=== PATIENT | female | born 1980 | race Caucasian/White ===

== ENCOUNTER 2016-08-27 12:39 | Emergency (ER) | payer OTHER | END 2016-08-27 15:10 | disposition home or self-care (01) | LOC: D.ER 12:39 | DX: G43.909 Migraine, unspecified, not intractable, without status migrainosus (principal); K21.9 Gastro-esophageal reflux disease without esophagitis; I10 Essential (primary) hypertension; F17.200 Nicotine dependence, unspecified, uncomplicated ==

== ENCOUNTER 2016-09-10 08:48 | Emergency (ER) | payer OTHER ==
[2016-09-10 09:24] LABS: BASOPHILS 0.1 % (0-2); EOSINOPHILS 0.3 % (0-7); HEMATOCRIT 43.5 % (36.0-48.0); HEMOGLOBIN 14.6 g/dL (12-16); IMMATURE GRANULOCYTES 0.3 % (0-5); LYMPHOCYTES 12.2 % (15-50); MCH 31.3 pg (26.0-34.0); MCHC 33.6 g/dL (31.0-37.0); MCV 93.1 fL (80.0-100.0); MEAN PLATELET VOLUME 10.9 fL (7.4-10.4); MONOCYTES 4.8 % (2-11); NEUTROPHILS 82.3 % (40-80); PLATELET COUNT 249 10x3/uL (130-400); RBC 4.67 10x6/uL (4.00-5.40); RDW 13.7 % (11.5-14.5); WBC 15.4 10x3/uL (4.8-10.8)
[2016-09-10 09:27] LABS: APPEARANCE CLEAR (CLEAR); BILIRUBIN NEGATIVE (NEGATIVE); COLOR DK YELLOW (YELLOW); GLUCOSE NEGATIVE (NEGATIVE); KETONE SMALL mg/dL (NEGATIVE); LEUKOCYTE ESTERASE NEGATIVE (NEGATIVE); NITRITE NEGATIVE (NEGATIVE); PROTEIN NEGATIVE (NEGATIVE); SPECIFIC GRAVITY 1.015 (1.005-1.020); UROBILINOGEN NORMAL (NORMAL)
[2016-09-10 09:34] LABS: ALBUMIN 3.6 g/dL (3.4-5.0); ALKALINE PHOSPHATASE 109 U/L (46-116); ALT (SGPT) 117 U/L (10-68); BILIRUBIN - TOTAL 0.58 mg/dL (0.2-1.3); CALC OSMOLALITY 276 mosm/kg (275-300); CALCIUM 9.1 mg/dL (8.5-10.1); CARBON DIOXIDE 26.8 mmol/L (21.0-32.0); CHLORIDE - SERUM 102 mmol/L (98-107); CREATININE - SERUM 0.8 mg/dL (0.6-1.3); GLUCOSE 128 mg/dL (74-106); POTASSIUM - SERUM 3.7 mmol/L (3.5-5.1); PROTEIN - SERUM 7.3 g/dL (6.4-8.2); SODIUM 138 mmol/L (136-145); UREA NITROGEN 10 mg/dL (7-18); eGFR NON AFRICAN AMERICAN 85 mL/min (90-120)
[2016-09-10 09:39] LABS: HCG SERUM NEGATIVE (NEGATIVE)
== END 2016-09-10 10:49 | disposition home or self-care (01) ==
LOC: D.ER 08:48
PROVIDERS: Emergency Medicine
DX: R11.10 Vomiting, unspecified (principal); R19.7 Diarrhea, unspecified; R10.9 Unspecified abdominal pain; K21.9 Gastro-esophageal reflux disease without esophagitis; I10 Essential (primary) hypertension; F17.200 Nicotine dependence, unspecified, uncomplicated

== ENCOUNTER 2016-11-25 16:18 | Emergency (ER) | payer OTHER ==
[2016-11-25 17:16] LABS: APPEARANCE HAZY (CLEAR); BILIRUBIN NEGATIVE (NEGATIVE); COLOR YELLOW (YELLOW); GLUCOSE NEGATIVE (NEGATIVE); KETONE NEGATIVE (NEGATIVE); LEUKOCYTE ESTERASE 1+ (NEGATIVE); NITRITE NEGATIVE (NEGATIVE); PROTEIN NEGATIVE (NEGATIVE); UROBILINOGEN NORMAL (NORMAL)
[2016-11-25 17:18] LABS: BACTERIA MODERATE /hpf (NONE SEEN); MUCUS <1+ /lpf (NONE SEEN); RED CELLS - URINE OCC /hpf (0-5)
[2016-11-25 17:18] LABS: HEMOGLOBIN 12.9 g/dL (12-16); MCHC 32.3 g/dL (31.0-37.0); MCV 96.2 fL (80.0-100.0); MEAN PLATELET VOLUME 10.7 fL (7.4-10.4); PLATELET COUNT 272 10x3/uL (130-400); RBC 4.16 10x6/uL (4.00-5.40); RDW 13.2 % (11.5-14.5); WBC 7.6 10x3/uL (4.8-10.8)
[2016-11-25 17:38] LABS: ALBUMIN 3.6 g/dL (3.4-5.0); ANION GAP 13.4 mmol/L (8-16); BILIRUBIN - TOTAL 0.24 mg/dL (0.2-1.3); CALCIUM 8.9 mg/dL (8.5-10.1); CARBON DIOXIDE 30.1 mmol/L (21.0-32.0); CREATININE - SERUM 0.9 mg/dL (0.6-1.3); EOSINOPHILS 2 % (0-7); LYMPHOCYTES 71 % (15-50); MONOCYTES 2 % (2-11); NEUTROPHILS 25 % (40-80); PLATELET ESTIMATE NORMAL; POTASSIUM - SERUM 4.5 mmol/L (3.5-5.1); PROTEIN - SERUM 7.1 g/dL (6.4-8.2)
== END 2016-11-25 18:45 | disposition home or self-care (01) ==
LOC: D.ER 16:18
PROVIDERS: Family Medicine
DX: N39.0 Urinary tract infection, site not specified (principal); I10 Essential (primary) hypertension

== ENCOUNTER 2016-11-27 09:08 | Emergency (ER) | payer OTHER | END 2016-11-27 12:45 | disposition home or self-care (01) | LOC: D.ER 09:08 | DX: N39.0 Urinary tract infection, site not specified (principal); N80.9 Endometriosis, unspecified; I10 Essential (primary) hypertension; K21.9 Gastro-esophageal reflux disease without esophagitis; F17.200 Nicotine dependence, unspecified, uncomplicated ==

== ENCOUNTER 2017-01-07 12:11 | Emergency (ER) | payer OTHER | END 2017-01-07 14:25 | disposition home or self-care (01) | LOC: D.ER 12:11 | DX: T78.3XXA Angioneurotic edema, initial encounter (principal); S93.402A Sprain of unspecified ligament of left ankle, initial encounter; X58.XXXA Exposure to other specified factors, initial encounter; Y93.89 Activity, other specified; Y92.89 Other specified places as the place of occurrence of the external cause; K21.9 Gastro-esophageal reflux disease without esophagitis; I10 Essential (primary) hypertension ==

== ENCOUNTER 2017-02-08 09:47 | Emergency (ER) | payer OTHER | END 2017-02-08 11:39 | disposition home or self-care (01) | LOC: D.ER 09:47 | DX: R10.9 Unspecified abdominal pain (principal); R10.2 Pelvic and perineal pain; K21.9 Gastro-esophageal reflux disease without esophagitis; I10 Essential (primary) hypertension; F17.200 Nicotine dependence, unspecified, uncomplicated ==

== ENCOUNTER → 2017-03-09 08:18 | Outpatient (CLI) | payer OTHER ==
[2017-03-09 09:04] LABS: UDS - AMPHET NEGATIVE QUAL (NEGATIVE); UDS - BARB NEGATIVE QUAL (NEGATIVE); UDS - BENZO POSITIVE QUAL (NEGATIVE); UDS - COCAINE NEGATIVE QUAL (NEGATIVE); UDS - OPIATE NEGATIVE QUAL (NEGATIVE); UDS - PCP NEGATIVE QUAL (NEGATIVE); UDS - THC NEGATIVE QUAL (NEGATIVE)
[2017-03-10 14:12] LABS: UDSC - AMPHET Negative ng/mL (Cutoff=1000); UDSC - BARB Negative ng/mL (Cutoff=300); UDSC - BENZO Negative ng/mL (Cutoff=300); UDSC - COC Negative ng/mL (Cutoff=300); UDSC - METH Negative ng/mL (Cutoff=300); UDSC - OPIATES Negative ng/mL (Cutoff=300); UDSC - PCP Negative ng/mL (Cutoff=25); UDSC - PROPOXY Negative ng/mL (Cutoff=300); UDSC - THC Negative ng/mL (Cutoff=50)
== END | disposition home or self-care (01) ==
LOC: D.LAB 08:18
PROVIDERS: Emergency Medicine
DX: F11.20 Opioid dependence, uncomplicated (principal)

== ENCOUNTER 2017-06-01 15:04 | Emergency (ER) | payer OTHER ==
[2017-06-01 16:13] LABS: BASOPHILS 0.1 % (0-2); EOSINOPHILS 1.8 % (0-7); HEMATOCRIT 40.1 % (36.0-48.0); HEMOGLOBIN 13.4 g/dL (12-16); IMMATURE GRANULOCYTES 0.2 % (0-5); MCHC 33.4 g/dL (31.0-37.0); MCV 92.8 fL (80.0-100.0); MEAN PLATELET VOLUME 10.3 fL (7.4-10.4); MONOCYTES 8.3 % (2-11); NEUTROPHILS 67.6 % (40-80); PLATELET COUNT 227 10x3/uL (130-400); RBC 4.32 10x6/uL (4.00-5.40); RDW 13.1 % (11.5-14.5); WBC 16.9 10x3/uL (4.8-10.8)
[2017-06-01 16:34] LABS: ALBUMIN 3.8 g/dL (3.4-5.0); ALKALINE PHOSPHATASE 87 U/L (46-116); ALT (SGPT) 21 U/L (10-68); CALC OSMOLALITY 267 mosm/kg (275-300); CALCIUM 8.3 mg/dL (8.5-10.1); CARBON DIOXIDE 27.9 mmol/L (21.0-32.0); CHLORIDE - SERUM 98 mmol/L (98-107); CREATININE - SERUM 0.8 mg/dL (0.6-1.3); GLUCOSE 112 mg/dL (74-106); POTASSIUM - SERUM 3.8 mmol/L (3.5-5.1); PROTEIN - SERUM 7.4 g/dL (6.4-8.2); SODIUM 133 mmol/L (136-145); UREA NITROGEN 14 mg/dL (7-18); eGFR NON AFRICAN AMERICAN 85 mL/min (90-120)
[2017-06-01 16:46] LABS: CREATINE KINASE 79 UL (21-215); TROPONIN-I < 0.017 ng/mL (0.000-0.060)
== END 2017-06-01 18:08 | disposition home or self-care (01) ==
LOC: D.ER 15:04
PROVIDERS: Emergency Medicine
DX: J20.9 Acute bronchitis, unspecified (principal); J06.9 Acute upper respiratory infection, unspecified; I10 Essential (primary) hypertension

== ENCOUNTER → 2017-06-15 22:32 | Outpatient (CLI) | payer OTHER ==
[2017-06-15 22:57] LABS: UDS - AMPHET NEGATIVE QUAL (NEGATIVE); UDS - BARB NEGATIVE QUAL (NEGATIVE); UDS - BENZO NEGATIVE QUAL (NEGATIVE); UDS - COCAINE NEGATIVE QUAL (NEGATIVE); UDS - OPIATE POSITIVE QUAL (NEGATIVE); UDS - PCP NEGATIVE QUAL (NEGATIVE); UDS - THC NEGATIVE QUAL (NEGATIVE)
== END | disposition home or self-care (01) ==
LOC: D.LAB 11:30
PROVIDERS: Emergency Medicine
DX: F11.20 Opioid dependence, uncomplicated (principal)

== ENCOUNTER → 2017-07-13 22:35 | Outpatient (CLI) | payer MEDICAID ==
[2017-07-13 23:01] LABS: UDS - AMPHET NEGATIVE QUAL (NEGATIVE); UDS - BARB NEGATIVE QUAL (NEGATIVE); UDS - BENZO NEGATIVE QUAL (NEGATIVE); UDS - COCAINE NEGATIVE QUAL (NEGATIVE); UDS - OPIATE NEGATIVE QUAL (NEGATIVE); UDS - PCP NEGATIVE QUAL (NEGATIVE); UDS - THC NEGATIVE QUAL (NEGATIVE)
== END | disposition home or self-care (01) ==
LOC: D.LAB 13:00
PROVIDERS: Emergency Medicine
DX: F11.20 Opioid dependence, uncomplicated (principal)

== ENCOUNTER 2017-07-24 07:13 | Emergency (ER) | payer MEDICAID ==
[2017-07-24 07:55] LABS: APPEARANCE HAZY (CLEAR); BILIRUBIN NEGATIVE (NEGATIVE); COLOR YELLOW (YELLOW); GLUCOSE NEGATIVE (NEGATIVE); KETONE NEGATIVE (NEGATIVE); NITRITE NEGATIVE (NEGATIVE); PROTEIN NEGATIVE (NEGATIVE); UROBILINOGEN NORMAL (NORMAL)
[2017-07-24 08:38] LABS: BASOPHILS 0.4 % (0-2); EOSINOPHILS 2.7 % (0-7); HEMATOCRIT 39.5 % (36.0-48.0); HEMOGLOBIN 12.8 g/dL (12-16); LYMPHOCYTES 42.5 % (15-50); MCH 30.2 pg (26.0-34.0); MCHC 32.4 g/dL (31.0-37.0); MCV 93.2 fL (80.0-100.0); MEAN PLATELET VOLUME 10.6 fL (7.4-10.4); MONOCYTES 9.4 % (2-11); PLATELET COUNT 238 10x3/uL (130-400); RBC 4.24 10x6/uL (4.00-5.40); RDW 13.3 % (11.5-14.5); WBC 8.1 10x3/uL (4.8-10.8)
[2017-07-24 08:47] LABS: CALC OSMOLALITY 271 mosm/kg (275-300); CALCIUM 8.5 mg/dL (8.5-10.1); CARBON DIOXIDE 28.8 mmol/L (21.0-32.0); CHLORIDE - SERUM 100 mmol/L (98-107); CREATININE - SERUM 0.8 mg/dL (0.6-1.3); GLUCOSE 125 mg/dL (74-106); POTASSIUM - SERUM 3.6 mmol/L (3.5-5.1); SODIUM 136 mmol/L (136-145); UREA NITROGEN 10 mg/dL (7-18); eGFR NON AFRICAN AMERICAN 85 mL/min (90-120)
[2017-07-24 08:50] LABS: HCG SERUM NEGATIVE (NEGATIVE)
== END 2017-07-24 09:27 | disposition home or self-care (01) ==
LOC: D.ER 07:13
PROVIDERS: Emergency Medicine
DX: N23 Unspecified renal colic (principal); F17.200 Nicotine dependence, unspecified, uncomplicated

== ENCOUNTER → 2017-08-20 18:11 | Outpatient (CLI) | payer OTHER ==
[2017-08-20 18:41] LABS: UDS - AMPHET NEGATIVE QUAL (NEGATIVE); UDS - BARB NEGATIVE QUAL (NEGATIVE); UDS - BENZO NEGATIVE QUAL (NEGATIVE); UDS - COCAINE NEGATIVE QUAL (NEGATIVE); UDS - OPIATE NEGATIVE QUAL (NEGATIVE); UDS - PCP NEGATIVE QUAL (NEGATIVE); UDS - THC NEGATIVE QUAL (NEGATIVE)
== END | disposition home or self-care (01) ==
LOC: D.LAB 11:30
PROVIDERS: Emergency Medicine
DX: F11.20 Opioid dependence, uncomplicated (principal)

== ENCOUNTER 2017-11-29 16:30 | Emergency (ER) | payer OTHER ==
[~2017-11-29] VITALS: Ht 152.4 cm; Wt 70.0 kg
[2017-11-29 16:38] VITALS: Ht 152.4 cm; Wt 70.0 kg
[2017-11-29] MEDS ORDERED: NORVASC2.5 MG PO (16:41)
[2017-11-29] MEDS ORDERED: PROPRANOLOL HCL20 MG PO (16:42)
[2017-11-29] MEDS ORDERED: PROTONIX20 MG PO (16:42)
[2017-11-29] MEDS ORDERED: IMITREX100 MG PO (16:42)
[2017-11-29] MEDS ORDERED: CELEXA40 MG PO (16:43)
[2017-11-29] MEDS ORDERED: TRAZODONE HCL50 MG PO (16:43)
[2017-11-29] MEDS ORDERED: ROBAXIN-750750 MG PO (16:43)
[2017-11-29] MEDS ORDERED: LIPITOR20 MG PO (16:44)
[2017-11-29] MEDS ORDERED: NEURONTIN 300300 MG PO (16:44)
[2017-11-29] MEDS ORDERED: HYDROCODONE-APA1 TAB PO (20:33)
[2017-11-29 20:55] VITALS: BP 132/78
== END 2017-11-29 20:55 | disposition home or self-care (01) ==
LOC: D.ER 16:30
DX: S93.402A Sprain of unspecified ligament of left ankle, initial encounter (principal); X50.1XXA Overexertion from prolonged static or awkward postures, initial encounter; Y93.89 Activity, other specified; Y92.019 Unspecified place in single-family (private) house as the place of occurrence of the external cause; I10 Essential (primary) hypertension; K21.9 Gastro-esophageal reflux disease without esophagitis

== ENCOUNTER 2018-04-16 18:28 | Emergency (ER) | payer SELFPAY ==
[~2018-04-16] VITALS: Ht 152.4 cm; Wt 65.9 kg
[~2018-04-16 18:28] MED LIST: CELEXA40 MG PO; HYDROCODONE-APA1 TAB PO; IMITREX100 MG PO; LIPITOR20 MG PO; NEURONTIN 300300 MG PO; NORVASC2.5 MG PO; PROPRANOLOL HCL20 MG PO; PROTONIX20 MG PO; ROBAXIN-750750 MG PO; TRAZODONE HCL50 MG PO
[2018-04-16 18:33] VITALS: Ht 152.4 cm; Wt 65.9 kg
[2018-04-16 19:57] LABS: BASOPHILS 0.2 % (0-2); EOSINOPHILS 1.1 % (0-7); HEMATOCRIT 37.8 % (36.0-48.0); HEMOGLOBIN 12.6 g/dL (12-16); IMMATURE GRANULOCYTES 0.2 % (0-5); LYMPHOCYTES 20.8 % (15-50); MCH 30.4 pg (26.0-34.0); MCHC 33.3 g/dL (31.0-37.0); MCV 91.3 fL (80.0-100.0); MEAN PLATELET VOLUME 9.5 fL (7.4-10.4); MONOCYTES 7.7 % (2-11); RBC 4.14 10x6/uL (4.00-5.40); RDW 13.8 % (11.5-14.5); WBC 16.9 10x3/uL (4.8-10.8)
[2018-04-16 20:03] LABS: APPEARANCE CLEAR (CLEAR); BILIRUBIN NEGATIVE (NEGATIVE); COLOR YELLOW (YELLOW); GLUCOSE NEGATIVE (NEGATIVE); KETONE NEGATIVE (NEGATIVE); NITRITE NEGATIVE (NEGATIVE); PROTEIN NEGATIVE (NEGATIVE); SPECIFIC GRAVITY 1.025 (1.005-1.020); UROBILINOGEN NORMAL (NORMAL)
[2018-04-16 20:06] LABS: PLATELET COUNT 296 10x3/uL (130-400)
[2018-04-16 20:23] LABS: ALBUMIN 3.4 g/dL (3.4-5.0); ANION GAP 11.5 mmol/L (8-16); BILIRUBIN - TOTAL 0.15 mg/dL (0.2-1.3); CALCIUM 8.9 mg/dL (8.5-10.1); CARBON DIOXIDE 30.2 mmol/L (21.0-32.0); CREATININE - SERUM 0.9 mg/dL (0.6-1.3); POTASSIUM - SERUM 3.7 mmol/L (3.5-5.1); PROTEIN - SERUM 7.6 g/dL (6.4-8.2)
[2018-04-16] MEDS ORDERED: BENZONATATE200 MG PO (21:12)
[2018-04-16] MEDS ORDERED: ZPAK PO (21:12)
[2018-04-16] MEDS ORDERED: MUCINEX DM ER1 EAC1 PO (21:12)
[2018-04-16 22:15] VITALS: BP 125/65
== END 2018-04-16 22:18 | disposition home or self-care (01) ==
LOC: D.ER 18:28
PROVIDERS: Family Medicine
DX: J06.9 Acute upper respiratory infection, unspecified (principal); R05 Cough; R09.89 Other specified symptoms and signs involving the circulatory and respiratory systems; G40.909 Epilepsy, unspecified, not intractable, without status epilepticus; I10 Essential (primary) hypertension; F17.200 Nicotine dependence, unspecified, uncomplicated

== ENCOUNTER 2018-05-16 17:00 | Emergency (ER) | payer OTHER ==
[~2018-05-16] VITALS: Ht 152.4 cm; Wt 65.9 kg
[~2018-05-16 17:00] MED LIST changes: +BENZONATATE200 MG PO; +MUCINEX DM ER1 EAC1 PO; +ZPAK PO
[2018-05-16 17:19] VITALS: Ht 152.4 cm; Wt 65.9 kg
[2018-05-16] MEDS ORDERED: LASIX20 MG PO (17:22)
[2018-05-16 18:00] LABS: BASOPHILS 0.2 % (0-2); EOSINOPHILS 3.5 % (0-7); HEMATOCRIT 37.6 % (36.0-48.0); HEMOGLOBIN 12.5 g/dL (12-16); IMMATURE GRANULOCYTES 0.2 % (0-5); LYMPHOCYTES 48.1 % (15-50); MCH 29.8 pg (26.0-34.0); MCHC 33.2 g/dL (31.0-37.0); MCV 89.5 fL (80.0-100.0); MEAN PLATELET VOLUME 10.2 fL (7.4-10.4); MONOCYTES 8.2 % (2-11); NEUTROPHILS 39.8 % (40-80); PLATELET COUNT 250 10x3/uL (130-400); RDW 14.3 % (11.5-14.5); WBC 8.5 10x3/uL (4.8-10.8)
[2018-05-16 18:09] LABS: APTT 25.4 SECONDS (22.8-39.4)
[2018-05-16 18:10] LABS: INR 0.86 (0.85-1.17); PROTIME 11.3 SECONDS (11.6-15.0)
[2018-05-16 18:28] LABS: ALBUMIN 3.2 g/dL (3.4-5.0); ALKALINE PHOSPHATASE 89 U/L (46-116); ALT (SGPT) 26 U/L (10-68); BILIRUBIN - TOTAL 0.16 mg/dL (0.2-1.3); CALC OSMOLALITY 275 mosm/kg (275-300); CALCIUM 8.2 mg/dL (8.5-10.1); CARBON DIOXIDE 26.1 mmol/L (21.0-32.0); CHLORIDE - SERUM 102 mmol/L (98-107); CKMB 0.7 U/L (0.0-3.6); CREATINE KINASE 69 UL (21-215); CREATININE - SERUM 0.8 mg/dL (0.6-1.3); GLUCOSE 136 mg/dL (74-106); MAGNESIUM - SERUM 1.9 mg/dL (1.8-2.4); POTASSIUM - SERUM 3.4 mmol/L (3.5-5.1); PROTEIN - SERUM 7.1 g/dL (6.4-8.2); SODIUM 137 mmol/L (136-145); TROPONIN-I < 0.017 ng/mL (0.000-0.060); UREA NITROGEN 12 mg/dL (7-18); eGFR NON AFRICAN AMERICAN 85 mL/min (90-120)
[2018-05-16] MEDS ORDERED: ROBAXIN500 MG PO (21:34)
[2018-05-16] MEDS ORDERED: NEURONTIN 300300 MG PO (21:34)
[2018-05-16 22:08] VITALS: BP 137/88
== END 2018-05-16 22:09 | disposition home or self-care (01) ==
LOC: D.ER 17:00
PROVIDERS: Family Medicine
DX: R07.81 Pleurodynia (principal); F41.9 Anxiety disorder, unspecified; G89.29 Other chronic pain; F17.200 Nicotine dependence, unspecified, uncomplicated

== ENCOUNTER 2018-08-29 14:38 | Emergency (ER) | payer OTHER ==
[~2018-08-29] VITALS: Ht 152.4 cm; Wt 65.9 kg
[~2018-08-29 14:38] MED LIST changes: +LASIX20 MG PO; +ROBAXIN500 MG PO
[2018-08-29 14:56] VITALS: Ht 152.4 cm; Wt 65.9 kg
[2018-08-29] MEDS ORDERED: LIPITOR20 MG PO (14:58)
[2018-08-29] MEDS ORDERED: TORADOL10 MG PO (17:40)
[2018-08-29 17:51] VITALS: BP 133/61
== END 2018-08-29 17:51 | disposition home or self-care (01) ==
LOC: D.ER 14:38
DX: M25.572 Pain in left ankle and joints of left foot (principal); I10 Essential (primary) hypertension

== ENCOUNTER 2019-03-24 10:10 | Emergency (ER) | payer OTHER ==
[~2019-03-24] VITALS: Ht 152.4 cm; Wt 68.2 kg
[~2019-03-24 10:10] MED LIST changes: +TORADOL10 MG PO
[2019-03-24 10:26] VITALS: Ht 152.4 cm; Wt 68.2 kg
[2019-03-24 10:59] LABS: BASOPHILS 0.3 % (0-2); EOSINOPHILS 0.3 % (0-7); HEMATOCRIT 43.8 % (36.0-48.0); HEMOGLOBIN 14.9 g/dL (12-16); IMMATURE GRANULOCYTES 0.2 % (0-5); LYMPHOCYTES 32.8 % (15-50); MCH 31.4 pg (26.0-34.0); MCV 92.4 fL (80.0-100.0); MONOCYTES 8.7 % (2-11); NEUTROPHILS 57.7 % (40-80); RBC 4.74 10x6/uL (4.00-5.40); RDW 13.3 % (11.5-14.5); WBC 11.7 10x3/uL (4.8-10.8)
[2019-03-24 11:05] LABS: CALC OSMOLALITY 272 mosm/kg (275-300); CALCIUM 8.8 mg/dL (8.5-10.1); CARBON DIOXIDE 32.6 mmol/L (21.0-32.0); CHLORIDE - SERUM 99 mmol/L (98-107); CREATININE - SERUM 0.8 mg/dL (0.6-1.3); GLUCOSE 123 mg/dL (74-106); POTASSIUM - SERUM 3.3 mmol/L (3.5-5.1); SODIUM 137 mmol/L (136-145); UREA NITROGEN 7 mg/dL (7-18); eGFR NON AFRICAN AMERICAN 84 mL/min (90-120)
[2019-03-24 11:11] LABS: PLATELET COUNT 322 10x3/uL (130-400)
[2019-03-24 11:14] LABS: ALBUMIN 4.3 g/dL (3.4-5.0); ALKALINE PHOSPHATASE 112 U/L (46-116); ALT (SGPT) 31 U/L (10-68); AMYLASE - SERUM 52 U/L (25-115); BILIRUBIN - TOTAL 0.41 mg/dL (0.2-1.3); LIPASE 94 U/L (73-393); TROPONIN-I < 0.017 ng/mL (0.000-0.060)
[2019-03-24 12:00] LABS: APPEARANCE HAZY (CLEAR); BILIRUBIN NEGATIVE (NEGATIVE); COLOR YELLOW (YELLOW); GLUCOSE 100 mg/dL (NEGATIVE); KETONE NEGATIVE (NEGATIVE); NITRITE NEGATIVE (NEGATIVE); PROTEIN NEGATIVE (NEGATIVE); SPECIFIC GRAVITY 1.015 (1.005-1.020); UROBILINOGEN NORMAL (NORMAL)
[2019-03-24] MEDS ORDERED: PHENERGAN25 MG RC (12:43)
[2019-03-24] MEDS ORDERED: LOMOTIL 2.5-0.1 EAC1 PO (12:43)
[2019-03-24 13:26] VITALS: BP 150/98
== END 2019-03-24 13:26 | disposition home or self-care (01) ==
LOC: D.ER 10:10
PROVIDERS: Emergency Medicine
DX: R19.7 Diarrhea, unspecified (principal); E87.6 Hypokalemia; R11.10 Vomiting, unspecified; I10 Essential (primary) hypertension; Z72.0 Tobacco use; R07.9 Chest pain, unspecified; R06.02 Shortness of breath; R05 Cough; R53.1 Weakness

== ENCOUNTER 2019-10-10 12:44 | Emergency (ER) | payer OTHER ==
[~2019-10-10] VITALS: Ht 152.4 cm; Wt 75.0 kg
[~2019-10-10 12:44] MED LIST changes: +LEXAPRO10 MG PO; +LOMOTIL 2.5-0.1 EAC1 PO; +PHENERGAN25 MG RC; +VOLTAREN75 MG PO
[2019-10-10 12:58] VITALS: Ht 152.4 cm; Wt 75.0 kg
[2019-10-10 13:38] LABS: BILIRUBIN NEGATIVE (NEGATIVE); GLUCOSE NEGATIVE (NEGATIVE); KETONE NEGATIVE (NEGATIVE); NITRITE NEGATIVE (NEGATIVE); UROBILINOGEN NORMAL (NORMAL)
[2019-10-10] MEDS ORDERED: METHOCARBAMOL500 MG PO (14:30)
[2019-10-10] MEDS ORDERED: OMEPRAZOLE40 MG PO (14:32)
[2019-10-10] MEDS ORDERED: VOLTAREN75 MG PO (14:33)
[2019-10-10 14:39] VITALS: BP 148/80
== END 2019-10-10 14:40 | disposition home or self-care (01) ==
LOC: D.ER 12:44
PROVIDERS: Family Medicine
DX: M54.9 Dorsalgia, unspecified (principal); M53.3 Sacrococcygeal disorders, not elsewhere classified; G89.29 Other chronic pain; I10 Essential (primary) hypertension

== ENCOUNTER 2019-11-02 11:10 | Emergency (ER) | payer OTHER ==
[~2019-11-02] VITALS: Ht 152.4 cm; Wt 72.7 kg
[~2019-11-02 11:10] MED LIST changes: +METHOCARBAMOL500 MG PO; +OMEPRAZOLE40 MG PO
[2019-11-02 11:36] VITALS: Ht 152.4 cm; Wt 72.7 kg
[2019-11-02 12:05] LABS: CALC OSMOLALITY 274 mosm/kg (275-300); CALCIUM 9.1 mg/dL (8.5-10.1); CARBON DIOXIDE 29.3 mmol/L (21.0-32.0); CHLORIDE - SERUM 101 mmol/L (98-107); CREATININE - SERUM 0.9 mg/dL (0.6-1.3); GLUCOSE 129 mg/dL (74-106); POTASSIUM - SERUM 4.2 mmol/L (3.5-5.1); SODIUM 136 mmol/L (136-145); UREA NITROGEN 15 mg/dL (7-18); eGFR NON AFRICAN AMERICAN 73 mL/min (90-120)
[2019-11-02 12:10] LABS: HEMATOCRIT 44.1 % (36.0-48.0); HEMOGLOBIN 14.7 g/dL (12-16); MCH 30.4 pg (26.0-34.0); MCHC 33.3 g/dL (31.0-37.0); MCV 91.1 fL (80.0-100.0); MEAN PLATELET VOLUME 10.3 fL (7.4-10.4); NEUTROPHILS 63.1 % (40-80); PLATELET COUNT 277 10x3/uL (130-400); RBC 4.84 10x6/uL (4.00-5.40); WBC 9.9 10x3/uL (4.8-10.8)
[2019-11-02 12:14] LABS: ALKALINE PHOSPHATASE 83 U/L (30-120); ALT (SGPT) 27 U/L (10-68); AMYLASE - SERUM 43 U/L (25-115); BILIRUBIN - TOTAL 0.49 mg/dL (0.2-1.3); LIPASE 68 U/L (73-393); PROTEIN - SERUM 7.5 g/dL (6.4-8.2); TROPONIN-I < 0.017 ng/mL (0.000-0.060)
[2019-11-02 12:21] LABS: BILIRUBIN NEGATIVE (NEGATIVE); GLUCOSE NEGATIVE (NEGATIVE); KETONE NEGATIVE (NEGATIVE); NITRITE NEGATIVE (NEGATIVE); SPECIFIC GRAVITY 1.015 (1.005-1.020); UROBILINOGEN NORMAL (NORMAL)
[2019-11-02 14:13] VITALS: BP 124/67
== END 2019-11-02 14:13 | disposition home or self-care (01) ==
LOC: D.ER 11:10
PROVIDERS: Emergency Medicine
DX: R11.0 Nausea (principal); R10.13 Epigastric pain; I10 Essential (primary) hypertension; Z72.0 Tobacco use; R53.1 Weakness

== ENCOUNTER 2020-02-02 15:27 | Emergency (ER) | payer OTHER ==
[2020-02-02 15:41] VITALS: Ht 152.4 cm
[2020-02-02 17:05] LABS: BASOPHILS 0.3 % (0-2); EOSINOPHILS 2.1 % (0-7); HEMATOCRIT 41.1 % (36.0-48.0); HEMOGLOBIN 13.9 g/dL (12-16); IMMATURE GRANULOCYTES 0.3 % (0-5); LYMPHOCYTES 32.7 % (15-50); MCH 31.4 pg (26.0-34.0); MCHC 33.8 g/dL (31.0-37.0); MEAN PLATELET VOLUME 10.4 fL (7.4-10.4); MONOCYTES 8.5 % (2-11); NEUTROPHILS 56.1 % (40-80); PLATELET COUNT 254 10x3/uL (130-400); RBC 4.42 10x6/uL (4.00-5.40); RDW 13.4 % (11.5-14.5); WBC 9.4 10x3/uL (4.8-10.8)
[2020-02-02 17:21] LABS: APTT 26.6 SECONDS (22.8-39.4); INR 0.9 (0.85-1.17); PROTIME 12.1 SECONDS (11.6-15.0)
[2020-02-02 17:25] LABS: BILIRUBIN NEGATIVE (NEGATIVE); KETONE NEGATIVE (NEGATIVE); NITRITE NEGATIVE (NEGATIVE); UROBILINOGEN NORMAL mg/dL (< 2)
[2020-02-02 17:28] LABS: ANION GAP 10.9 mmol/L (8-16); CALCIUM 8.7 mg/dL (8.5-10.1); CREATININE - SERUM 0.9 mg/dL (0.6-1.3); POTASSIUM - SERUM 3.9 mmol/L (3.5-5.1)
[2020-02-02 17:33] LABS: UDS - AMPHET NEGATIVE QUAL (NEGATIVE); UDS - BARB NEGATIVE QUAL (NEGATIVE); UDS - BENZO POSITIVE QUAL (NEGATIVE); UDS - COCAINE NEGATIVE QUAL (NEGATIVE); UDS - OPIATE NEGATIVE QUAL (NEGATIVE); UDS - PCP NEGATIVE QUAL (NEGATIVE); UDS - THC NEGATIVE QUAL (NEGATIVE)
[2020-02-02 17:34] LABS: ALBUMIN 3.7 g/dL (3.4-5.0); BILIRUBIN - TOTAL 0.23 mg/dL (0.2-1.3); PROTEIN - SERUM 7.1 g/dL (6.4-8.2)
[2020-02-02] MEDS ORDERED: CYCLOBENZAPRINE10 MG PO (17:55)
[2020-02-02 18:21] VITALS: BP 121/71
[2020-02-02 22:24] LABS: HCG SERUM NEGATIVE (NEGATIVE)
== END 2020-02-02 18:22 | disposition home or self-care (01) ==
LOC: D.ER 15:27
PROVIDERS: Family Medicine
DX: R07.9 Chest pain, unspecified (principal); V89.2XXA Person injured in unspecified motor-vehicle accident, traffic, initial encounter; I10 Essential (primary) hypertension; E78.5 Hyperlipidemia, unspecified

== ENCOUNTER 2020-07-11 14:44 | Emergency (ER) | payer MEDICAID ==
[~2020-07-11] VITALS: Ht 152.4 cm; Wt 72.7 kg
[~2020-07-11 14:44] MED LIST changes: +CYCLOBENZAPRINE10 MG PO
[2020-07-11 14:49] VITALS: BP 137/88; Ht 152.4 cm; Wt 72.7 kg
[2020-07-11] MEDS ORDERED: PROTONIX20 MG PO (14:53)
[2020-07-11] MEDS ORDERED: NAPROSYN500 MG PO (15:45)
[2020-07-11] MEDS ORDERED: CYCLOBENZAPRINE10 MG PO (15:45)
== END 2020-07-11 16:27 | disposition home or self-care (01) ==
LOC: D.ER 14:44
DX: R51.9 Headache, unspecified (principal); Y09 Assault by unspecified means; I10 Essential (primary) hypertension; Z72.0 Tobacco use; E78.5 Hyperlipidemia, unspecified; R73.03 Prediabetes

== ENCOUNTER 2020-09-23 09:46 | Emergency (ER) | payer OTHER ==
[~2020-09-23] VITALS: Ht 152.4 cm; Wt 72.7 kg
[~2020-09-23 09:46] MED LIST changes: +NAPROSYN500 MG PO
[2020-09-23 09:54] VITALS: BP 119/72; Ht 152.4 cm; Wt 72.7 kg
[2020-09-23] MEDS ORDERED: ZONEGRAN100 MG PO (09:59)
[2020-09-23] MEDS ORDERED: METHOCARBAMOL500 MG PO (11:24)
[2020-09-23] MEDS ORDERED: TORADOL10 MG PO (11:24)
== END 2020-09-23 12:00 | disposition home or self-care (01) ==
LOC: D.ER 09:46
DX: S16.1XXA Strain of muscle, fascia and tendon at neck level, initial encounter (principal); M54.9 Dorsalgia, unspecified; R73.03 Prediabetes; I10 Essential (primary) hypertension; E78.5 Hyperlipidemia, unspecified; Z72.0 Tobacco use; V89.2XXA Person injured in unspecified motor-vehicle accident, traffic, initial encounter; Y93.9 Activity, unspecified; Y92.9 Unspecified place or not applicable; R51.9 Headache, unspecified

== ENCOUNTER 2020-11-02 19:19 | Emergency (ER) | payer BC ==
[~2020-11-02] VITALS: Ht 152.4 cm; Wt 75.0 kg
[~2020-11-02 19:19] MED LIST changes: +ZONEGRAN100 MG PO
[2020-11-02 19:47] VITALS: BP 136/80; Ht 152.4 cm; Wt 75.0 kg
== END 2020-11-02 22:02 | disposition left against medical advice (07) ==
LOC: D.ER 19:19
DX: R51.9 Headache, unspecified (principal); Z53.21 Procedure and treatment not carried out due to patient leaving prior to being seen by health care provider